=== PATIENT | female | born 1985 | race Two or more races ===

== ENCOUNTER 2023-05-15 19:36 | Inpatient (IN) | payer OTHER ==
[~2023-05-15] VITALS: Ht 162.6 cm; Wt 77.1 kg
== END 2023-05-21 20:29 | disposition home or self-care (01) | DRG 853 ==
LOC: ER 19:36 → ICU-2 05-16 09:20 → ICU 05-16 09:20 → MEDJ 05-21 18:15 → ICU 05-21 18:27 → MEDJ 05-21 18:32
PROVIDERS: Urology; ADMIT Internal Medicine Pulmonary Disease; ATTEND Internal Medicine Pulmonary Disease
PROC: BW21ZZZ Computerized Tomography (CT Scan) of Abdomen and Pelvis (ICD-10-PCS; 2023-05-15)
PROC: 02HV33Z Insertion of Infusion Device into Superior Vena Cava, Percutaneous Approach (ICD-10-PCS; 2023-05-16)
PROC: 4A12X4Z Monitoring of Cardiac Electrical Activity, External Approach (ICD-10-PCS; 2023-05-16)
PROC: 5A0945A Assistance with Respiratory Ventilation, 24-96 Consecutive Hours, High Flow/Velocity Cannula (ICD-10-PCS; 2023-05-16)
PROC: 0T768DZ Dilation of Right Ureter with Intraluminal Device, Via Natural or Artificial Opening Endoscopic (ICD-10-PCS; principal; 2023-05-16 17:00)
DX: A41.9 Sepsis, unspecified organism (principal); R65.21 Severe sepsis with septic shock; N13.2 Hydronephrosis with renal and ureteral calculous obstruction; N17.8 Other acute kidney failure; N39.0 Urinary tract infection, site not specified; N10 Acute pyelonephritis; E87.1 Hypo-osmolality and hyponatremia; E86.0 Dehydration; I95.89 Other hypotension; D64.89 Other specified anemias; E87.6 Hypokalemia; D69.49 Other primary thrombocytopenia; E88.09 Other disorders of plasma-protein metabolism, not elsewhere classified; B96.29 Other Escherichia coli [E. coli] as the cause of diseases classified elsewhere